=== PATIENT | female | born 1970 | race Caucasian/White ===

== ENCOUNTER 2022-04-03 14:57 | Emergency (ER) | payer BC, MEDICAID ==
[2022-04-03] MEDS ORDERED: Sodium Chloride 0.9% 10 ML Syringe FLUSH PRN (15:05)
[2022-04-03 15:06] VITALS: BP 122/75; PULSE 75
[2022-04-03 15:57] LABS: ANION GAP 13.7 mmol/L (5-15)
[2022-04-03] MEDS ORDERED: Aspirin 81 MG Tab.Chew PO ONE (16:27)
== END 2022-04-03 18:50 ==
LOC: KA.ED 14:57
DX: R10.11 Right upper quadrant pain (principal); R77.8 Other specified abnormalities of plasma proteins; E66.9 Obesity, unspecified; Z68.42 Body mass index [BMI] 45.0-49.9, adult; Z88.5 Allergy status to narcotic agent; Z91.040 Latex allergy status; Z88.0 Allergy status to penicillin; Z88.2 Allergy status to sulfonamides
CPT/HCPCS: 36415; 71046; 80053; 83690; 84484; 85025; 93005; 93010; 99284; A9270-GY